=== PATIENT | male | born 1985 | race Caucasian/White ===

== ENCOUNTER 2021-08-05 20:01 | Inpatient (IN) | payer SELFPAY ==
[~2021-08-05] VITALS: Ht 188 cm; Wt 77.3 kg
[2021-08-05 21:15] LABS: HEMATOCRIT 43.8 % (42.0-52.0); HEMOGLOBIN 15.6 g/dl (13.5-17.5); MEAN CORPUSCULAR HEMOGLOBIN 31.9 pg (27.0-33.0); MEAN CORPUSCULAR HGB CONC 35.6 g/dl (32.0-36.5); MEAN CORPUSCULAR VOLUME 89.6 fl (80.0-96.0); PLATELET COUNT, AUTOMATED 309 10^3/uL (150-450); RED BLOOD COUNT 4.89 10^6/uL (4.30-6.10); WHITE BLOOD COUNT 7.3 10^3/uL (4.0-10.0)
[2021-08-05 21:51] LABS: ACETAMINOPHEN LEVEL < 2.0 UG/ML (10.0-30.0); ALBUMIN 3.9 GM/DL (3.2-5.2); ALT/SGPT 74 U/L (12-78); BILIRUBIN,DIRECT 0.1 MG/DL (0.0-0.2); BILIRUBIN,TOTAL 0.4 MG/DL (0.2-1.0); BLOOD UREA NITROGEN 14 MG/DL (7-18); CALCIUM LEVEL 8.7 MG/DL (8.5-10.1); CARBON DIOXIDE LEVEL 33 MEQ/L (21-32); CHLORIDE LEVEL 102 MEQ/L (98-107); CREATININE FOR GFR 0.89 MG/DL (0.70-1.30); ETHYL ALCOHOL (ETHANOL) < 0.003 % (0.000-0.010); GLOMERULAR FILTRATION RATE > 60.0 (>60); GLUCOSE, FASTING 85 MG/DL (70-100); POTASSIUM SERUM 4.5 MEQ/L (3.5-5.1); SALICYLATE LEVEL < 1.7 MG/DL (5.0-30.0); SODIUM LEVEL 139 MEQ/L (136-145); TOTAL PROTEIN 7.1 GM/DL (6.4-8.2)
[2021-08-05 21:52] LABS: AMPHETAMINES LEVEL URINE POSITIVE (NEGATIVE); BARBITURATES URINE NEGATIVE (NEGATIVE); BENZODIAZEPINES URINE NEGATIVE (NEGATIVE); CANNABINOIDS URINE POSITIVE (NEGATIVE); COCAINE METABOLITE URINE NEGATIVE (NEGATIVE); METHADONE URINE NEGATIVE (NEGATIVE); OPIATES URINE NEGATIVE (NEGATIVE); PHENCYCLIDINE URINE NEGATIVE (NEGATIVE)
[2021-08-05 21:55] LABS: RSV AMPLIFICATION NEGATIVE (NEGATIVE)
[2021-08-05] MEDS ORDERED: HOME MED LIST COMPLETE! XX SCH (22:35)
[2021-08-06] MEDS ORDERED: MAALOX 30 ML SUSP *UDC PO PRN (00:35)
[2021-08-06] MEDS ORDERED: OLANZapine ORAL DISINTEGRATING TAB 5MG PO PRN (00:35)
[2021-08-06] MEDS ORDERED: ACETAMINOPHEN TAB 650MG DOSE (2X325MG) PO PRN (00:35)
[2021-08-06] MEDS ORDERED: hydrOXYzine 25 MG TAB PO PRN (00:35)
[2021-08-06] MEDS ORDERED: MOM 30ML SUSPENSION UDC PO PRN (00:35)
[2021-08-06] MEDS ORDERED: traZODone 50 MG TAB PO PRN (00:35)
[2021-08-06 03:45] VITALS: BP 127/74
[2021-08-06] MEDS: SERTRALINE HCL 50 MG TAB PO SCH (09:42)
[2021-08-06 18:58] VITALS: BP 130/70
[2021-08-06] MEDS: DOCUSATE SODIUM 100MG CAPSULE PO SCH (21:34)
[2021-08-07 06:31] VITALS: BP 91/51
[2021-08-07] MEDS: DOCUSATE SODIUM 100MG CAPSULE PO SCH ×2 (09:41→21:00)
[2021-08-07] MEDS: PANTOPRAZOLE 40MG TAB (PROTONIX) PO SCH (09:41)
[2021-08-07] MEDS: SERTRALINE HCL 50 MG TAB PO SCH (09:41)
[2021-08-07] MEDS ORDERED: CALCIUM CARBONATE 500 MG CHEW U/D PO SCH (15:30)
[2021-08-07] MEDS: MIRALAX *UNIT DOSE* 17GM PACKET PO PRN (15:31)
[2021-08-07 15:56] VITALS: BP 137/83
[2021-08-07] MEDS: SENNA 8.6 MG TAB (SENOKOT) PO SCH (16:26)
[2021-08-07 19:11] VITALS: BP 137/83
[2021-08-08 06:14] VITALS: BP 118/65
[2021-08-08] MEDS: SENNA 8.6 MG TAB (SENOKOT) PO SCH ×2 (09:00→20:28)
[2021-08-08] MEDS: SERTRALINE HCL 50 MG TAB PO SCH (09:00)
[2021-08-08] MEDS: PANTOPRAZOLE 40MG TAB (PROTONIX) PO SCH (09:00)
[2021-08-08] MEDS: DOCUSATE SODIUM 100MG CAPSULE PO SCH ×2 (09:00→20:28)
[2021-08-08 15:55] VITALS: BP 118/65
[2021-08-08 16:49] VITALS: BP 128/74
[2021-08-09] MEDS: MIRALAX *UNIT DOSE* 17GM PACKET PO PRN (07:44)
[2021-08-09] MEDS: SENNA 8.6 MG TAB (SENOKOT) PO SCH ×2 (07:45→21:00)
[2021-08-09] MEDS: SERTRALINE HCL 50 MG TAB PO SCH (07:46)
[2021-08-09] MEDS: PANTOPRAZOLE 40MG TAB (PROTONIX) PO SCH (07:46)
[2021-08-09] MEDS: DOCUSATE SODIUM 100MG CAPSULE PO SCH ×2 (07:46→21:00)
[2021-08-09] MEDS ORDERED: PANT40TA29 PO (10:20)
[2021-08-09] MEDS ORDERED: MOM30SS2 PO (10:20)
[2021-08-09] MEDS ORDERED: COLA100C5 PO (10:20)
[2021-08-09] MEDS ORDERED: SERT50TA29 PO (10:20)
[2021-08-09] MEDS ORDERED: MIRA1POW3 PO (10:20)
[2021-08-09] MEDS ORDERED: SENN18TA PO (10:20)
[2021-08-09 15:12] LABS: APPEARANCE, URINE CLEAR (CLEAR); BACTERIA, URINE AUTO NEGATIVE (NEGATIVE); BILIRUBIN, URINE AUTO NEGATIVE (NEGATIVE); BLOOD, URINE BLOOD NEGATIVE (NEGATIVE); COLOR, URINE YELLOW (YELLOW); GLUCOSE, URINE (UA) AUTO NEGATIVE (NEGATIVE); KETONE, URINE AUTO NEGATIVE (NEGATIVE); LEUKOCYTE ESTERASE, URINE AUTO NEGATIVE (NEGATIVE); NITRITE, URINE AUTO NEGATIVE (NEGATIVE); PROTEIN, URINE AUTO NEGATIVE (NEGATIVE); RBC, URINE AUTO 1 /HPF (0-3); SPECIFIC GRAVITY URINE AUTO 1.015 (1.002-1.035); SQUAMOUS EPITHELIAL CELL UR AU 0 /HPF (0-6); UROBILINOGEN, URINE AUTO 0.2 mg/dL (0.0-2.0); WBC, URINE AUTO 1 /HPF (0-3)
[2021-08-09 16:02] VITALS: BP 135/73
[2021-08-09 16:09] LABS: Lyme Disease IgG/IgM Antibodie <0.91 ISR (0.00-0.90); Lyme Disease IgM Ab Quantitati <0.80 index (0.00-0.79)
[2021-08-10] MEDS: SERTRALINE HCL 50 MG TAB PO SCH (08:02)
[2021-08-10] MEDS: SENNA 8.6 MG TAB (SENOKOT) PO SCH (08:03)
[2021-08-10] MEDS: PANTOPRAZOLE 40MG TAB (PROTONIX) PO SCH (08:03)
[2021-08-10] MEDS: DOCUSATE SODIUM 100MG CAPSULE PO SCH (08:03)
== END 2021-08-10 11:30 | disposition home or self-care (01) | DRG 753 ==
LOC: M ED 20:01 → M ED INP 08-06 00:32 → M PSY 08-06 03:00
PROVIDERS: ADMIT Student in an Organized Health Care Education/Training Program; ATTEND Student in an Organized Health Care Education/Training Program
DX: F32.89 Other specified depressive episodes (principal); R45.851 Suicidal ideations; F12.90 Cannabis use, unspecified, uncomplicated; F15.90 Other stimulant use, unspecified, uncomplicated; Z59.00 Homelessness unspecified; F17.200 Nicotine dependence, unspecified, uncomplicated; K59.00 Constipation, unspecified; H53.2 Diplopia